=== PATIENT | male | born 1975 | race Caucasian/White ===

== ENCOUNTER 2019-03-29 10:45 | Emergency (ER) | payer OTHER ==
[~2019-03-29] VITALS: Ht 180.3 cm; Wt 88.5 kg
[2019-03-29] MEDS ORDERED: LEVSOD25 (11:06)
[2019-03-29] MEDS ORDERED: SERT25 (11:06)
[2019-03-29] MEDS ORDERED: Loratadine10 MG PO (11:06)
[2019-03-29] MEDS ORDERED: FISH OIL 1,0001 EAC1 PO (11:07)
== END 2019-03-29 11:54 | disposition home or self-care (01) ==
LOC: ER 10:45
DX: L84 Corns and callosities (principal); E03.9 Hypothyroidism, unspecified; F17.210 Nicotine dependence, cigarettes, uncomplicated; Z88.2 Allergy status to sulfonamides; Z79.899 Other long term (current) drug therapy
CPT/HCPCS: 73630; 99283-25

== ENCOUNTER 2019-05-17 08:10 | Emergency (ER) | payer OTHER ==
[~2019-05-17] VITALS: Ht 185.4 cm; Wt 98.9 kg
[~2019-05-17 08:10] MED LIST: FISH OIL 1,0001 EAC1 PO; LEVSOD25; Loratadine10 MG PO; SERT25
[2019-05-17] MEDS ORDERED: SERT25 (08:28)
[2019-05-17] MEDS ORDERED: Inderal40 MG PO ×2 (08:28→08:41)
[2019-05-17] MEDS ORDERED: Synthroid88 MCG (08:28)
[2019-05-17] MEDS ORDERED: Zoloft25 MG PO (08:35)
[2019-05-17] MEDS ORDERED: LEVSOD100 PO (08:35)
== END 2019-05-17 09:40 | disposition home or self-care (01) ==
LOC: ER 08:10
DX: F43.9 Reaction to severe stress, unspecified (principal); F17.200 Nicotine dependence, unspecified, uncomplicated; E03.9 Hypothyroidism, unspecified; Z76.0 Encounter for issue of repeat prescription; Z88.2 Allergy status to sulfonamides
CPT/HCPCS: 99283

== ENCOUNTER 2022-01-02 08:26 | Emergency (ER) | payer OTHER ==
[~2022-01-02] VITALS: Ht 185.4 cm; Wt 99.8 kg
[~2022-01-02 08:26] MED LIST changes: +Inderal40 MG PO; +LEVSOD100 PO; +Synthroid88 MCG; +Zoloft25 MG PO
[2022-01-02] MEDS ORDERED: ERYT1OIN RIGHTEYE (09:18)
[2022-01-02] MEDS ORDERED: Monodox100 MG PO (09:18)
== END 2022-01-02 10:07 | disposition home or self-care (01) ==
LOC: ER 08:26
DX: H44.001 Unspecified purulent endophthalmitis, right eye (principal)
CPT/HCPCS: 99282

== ENCOUNTER 2022-02-06 03:38 | Emergency (ER) | payer OTHER ==
[~2022-02-06] VITALS: Ht 185.4 cm; Wt 101.2 kg
[~2022-02-06 03:38] MED LIST changes: +ERYT1OIN RIGHTEYE; +Monodox100 MG PO
== END 2022-02-06 04:09 | disposition home or self-care (01) ==
LOC: ER 03:38
DX: S01.81XA Laceration without foreign body of other part of head, initial encounter (principal); E03.9 Hypothyroidism, unspecified; F17.200 Nicotine dependence, unspecified, uncomplicated; Y04.2XXA Assault by strike against or bumped into by another person, initial encounter
CPT/HCPCS: 99284

== ENCOUNTER 2024-03-05 05:44 | Emergency (ER) | payer OTHER ==
[~2024-03-05] VITALS: Ht 185.4 cm; Wt 95.2 kg
[~2024-03-05 05:44] MED LIST changes: +LEVSOD150 PO; +OMEP20ER PO; +PROP10 PO
[2024-03-05] MEDS ORDERED: Amoxicillin/Clavulanate K 875 MG Tab PO ONE (06:55)
[2024-03-05] MEDS ORDERED: AMOCLA875 PO (06:55)
[2024-03-05 07:09] VITALS: BP 137/100
== END 2024-03-05 07:10 | disposition home or self-care (01) ==
LOC: ER 05:44
DX: L03.012 Cellulitis of left finger (principal); E03.9 Hypothyroidism, unspecified; K21.9 Gastro-esophageal reflux disease without esophagitis; F20.9 Schizophrenia, unspecified; F17.210 Nicotine dependence, cigarettes, uncomplicated; Z79.890 Hormone replacement therapy; Z79.899 Other long term (current) drug therapy; Z88.2 Allergy status to sulfonamides
CPT/HCPCS: 99282; A9270